=== PATIENT | male | born 1955 | race Two or more races ===

== ENCOUNTER 2017-03-08 15:17 | Emergency (ER) | payer MEDICARE, MEDICAID ==
[~2017-03-08] VITALS: Ht 167.6 cm; Wt 81.2 kg
[2017-03-08 16:14] VITALS: BP 164/98
[2017-03-08] MEDS ORDERED: cefTRIAXone SOD 1,000 MG VL IM ONE (17:15)
== END 2017-03-08 17:35 | disposition home or self-care (01) ==
LOC: ER 15:21
DX: J03.90 Acute tonsillitis, unspecified (principal); J01.90 Acute sinusitis, unspecified
CPT/HCPCS: 71046; 96372; 99284; J0696